=== PATIENT | female | born 1990 | race Caucasian/White ===

== ENCOUNTER → 2023-02-10 | Emergency (ER) | payer OTHER ==
[~2023-02-10] VITALS: Ht 152.4 cm; Wt 50.8 kg
[~2023-02-10] MED LIST: IRON1TAB4 PO
== END | disposition home or self-care (01) ==
LOC: ER 02:25
DX: R10.31 Right lower quadrant pain (principal); I88.8 Other nonspecific lymphadenitis
CPT/HCPCS: 36415; 74177; Q9965